=== PATIENT | male | born 1965 | race Caucasian/White ===

== ENCOUNTER → 2016-07-25 | Outpatient (CLI) | payer OTHER ==
[~2016-07-25] MED LIST: CYCL10TA6 PO; NAPR1TAB9 PO; SERT50TA PO; TRAM-10 PO
--- NOTE | 2016-07-31 14:06 | POLYSOMNOGRAPH REPORT ---
REFERRING PERSON: Dr. Yesenia Blood. CUMULATIVE EFFECTS ANALYST: Tammi Ahmadi. Mr. Dale is a 50-year-old male sent for a possible split night sleep study. He complains of loud snoring, witnessed apneas and excessive daytime sleepiness. His [place] sleepiness scale score on the evening of this study is not recorded. BMI is 33.22. Following the technical and digital specifications of the [employer] ([employer]) a standard diagnostic polysomnogram was performed monitoring EEG, EOG, EMG (chin and leg deviations), oxygen saturation, body position, digital video, respiratory effort and airflow. The sleep Stage and event scoring was based on the AASM Manual for the Scoring of Sleep and Associated Events 2007 edition. Apneas are defined as a drop in the peak thermal sensor excursion by >90% of baseline for at least 10 seconds. Hypopneas were scored using the 4% oxygen desaturation rule (4A-[employer]) and a decrease in the nasal pressure excursions by >30% of baseline for at least 10 seconds. Respiratory effort-related arousal (RERA's) is defined as a sequence of breaths lasting at least 10 seconds characterized by increasing respiratory effort or flattening of the nasal pressure waveform leading to an arousal from sleep when the sequence of breaths does not meet criteria for an apnea or hypopnea. Apnea Hypopnea index (AHI) is defined as the number of apneas and hypopneas occurring in an hour of sleep. Respiratory disturbance index (RDI) is defined as the number of apneas, hypopneas, and RERA's occurring in an hour of sleep. Mr. Dale's total sleep period time was 492.5 minutes. Total sleep time was 467.5 minutes. Sleep efficiency was 87%. Latency to sleep onset was 44 minutes with wake after sleep onset of 25.5 minutes. Total non-REM sleep time was 421.5 minutes. He spent 10% of that time in N1 sleep, 74% in N2 sleep and 7% in N3 sleep. REM latency was prolonged at 259 minutes. Total REM sleep time was 46 minutes or 10% of total sleep time. There were 114 cortical arousals from sleep. Nine of these arousals were spontaneous, 28 were due to respiratory events, 28 due to periodic limb movements of sleep and 55 were due to snoring. There were 245 periodic limb movements noted on this test. Limb movement index was 31.4. Limb movement with arousal index was 3.6. There were 10 central apneas, 23 obstructive apneas, 15 mixed apneas and 189 hypopnea on this study. Apnea-hypopnea index was 30.4 consistent with severe sleep apnea. 4204 snoring events were recorded. Total sleep time with snoring was 36.5%. Mean saturation was 93% with desaturations less than 89% for only 1.6 minutes of recording time. Heart rates during sleep ranged from as slow as 30 beats per minute to a high of 127 beats per minute. End tidal CO2 was recorded on this test. End tidal CO2s were between 45 and 50 mmHg for 2.7% of total sleep period time, between 40 and 45 mmHg for 59.1%, between 35 and 40 mmHg for 31.8% and between 30 and 35 mmHg for 5.3% of total sleep period time. EKG and telemetry monitoring showed frequent PVCs on this study. IMPRESSION AND PLAN: 50-year-old male with severe sleep apnea of all types; central, mixed and obstructive. He had limited nocturnal hypoxemia associated with this. I would strongly recommend that this patient be started on positive airway pressure therapy. He should return to the sleep lab for a full night titration and then based on those results be started on equipment at home. A download from his machine can be reviewed in 1 month both to check compliance as well as AHI and further pressure adjustments can occur at that time. This patient may require more than traditional CPAP or BiPAP therapy but require BiPAP ST or ASV given the central component of his disease.
== END | disposition home or self-care (01) ==
LOC: C.NEUR 21:00
PROVIDERS: ATTEND Family Medicine
DX: G47.31 Primary central sleep apnea (principal); G47.33 Obstructive sleep apnea (adult) (pediatric); G47.10 Hypersomnia, unspecified; R06.83 Snoring